=== PATIENT | male | born 1955 | race Caucasian/White ===

== ENCOUNTER → 2019-12-19 | Outpatient (CLI) | payer MEDICARE, BC | LOC: COL.VAS 08:35 | DX: Z86.711 Personal history of pulmonary embolism (principal); Z86.718 Personal history of other venous thrombosis and embolism ==

== ENCOUNTER 2023-12-27 10:54 | Emergency (ER) | payer MEDICARE, BC ==
[~2023-12-27] VITALS: Ht 167.6 cm; Wt 95.5 kg
[2023-12-27 11:02] VITALS: TEMP 97.9
[2023-12-27] MEDS ORDERED: NS 1,000 ML IV ONE (11:45)
[2023-12-27 12:10] LABS: BASO # 0.1 K/mm3 (0.0-0.2); EOS # 0.2 K/mm3 (0.0-0.7); EOS % 2.6 % (0.0-4.0); GRAN # 4.9 K/mm3 (1.4-6.5); GRAN % 63.2 % (42.2-75.2); HEMATOCRIT 47.2 % (42.0-52.0); LYMPH # 1.7 K/mm3 (1.2-3.4); LYMPH % 22.1 % (20.0-51.0); MEAN CELL VOLUME 89 fl (80.0-100.0); MEAN CORPUSCULAR HEMOGLOBIN 30 pg (27-31); MEAN CORPUSCULAR HGB CONC 34 g/dl (33.0-37.0); MONO # 0.8 K/mm3 (0.1-0.6); MONO % 10.7 % (1.7-9.3); PLATELET COUNT 245 K/mm3 (130-400); RED BLOOD COUNT 5.33 M/mm3 (4.20-5.60); REDCELL DISTRIBUTION WIDTH-CV 13.6 % (11.5-14.5)
[2023-12-27 13:01] LABS: ALBUMIN 4.2 g/dL (3.4-4.8); BILIRUBIN,TOTAL 1.1 mg/dL (0.2-1.2); CALCIUM 9.7 mg/dL (8.4-10.2); CREATININE, serum 1.56 mg/dL (0.72-1.25); POTASSIUM 3.9 mEq/L (3.5-4.5); TOTAL PROTEIN 7.8 g/dl (6.2-8.1)
[2023-12-27 13:35] LABS: TROPONIN-I 0.011 ng/mL (0.00-0.033)
[2023-12-27 14:48] VITALS: BP 118/72; PULSE 87
== END 2023-12-27 14:48 | disposition home or self-care (01) ==
LOC: COL.ER 10:54
PROVIDERS: Nurse Practitioner
DX: J18.9 Pneumonia, unspecified organism (principal)
CPT/HCPCS: J7030